=== PATIENT | female | born 1965 | race Two or more races ===

== ENCOUNTER 2018-12-05 21:25 | Emergency (ER) | payer OTHER ==
[~2018-12-05] VITALS: Ht 167.6 cm; Wt 127.0 kg
[2018-12-05] MEDS ORDERED: NEURONTIN300 MG (22:01)
[2018-12-05] MEDS ORDERED: TRENTAL (22:02)
[2018-12-05] MEDS ORDERED: PROTONIX40 M1 (22:03)
[2018-12-05] MEDS ORDERED: COZAAR50 MG (22:03)
[2018-12-05] MEDS ORDERED: TRAMADOL HCL E100 M1 (22:04)
[2018-12-05] MEDS ORDERED: SINGULAIR10 MG (22:04)
== END 2018-12-05 22:37 | disposition home or self-care (01) ==
LOC: ER 21:25
DX: S90.571A Other superficial bite of ankle, right ankle, initial encounter (principal); W54.0XXA Bitten by dog, initial encounter; Y93.89 Activity, other specified; Y92.89 Other specified places as the place of occurrence of the external cause; Y99.8 Other external cause status

== ENCOUNTER 2019-04-25 18:11 | Emergency (ER) | payer OTHER ==
[~2019-04-25] VITALS: Ht 167.6 cm; Wt 126.1 kg
[~2019-04-25 18:11] MED LIST: COZAAR50 MG; NEURONTIN300 MG; PROTONIX40 M1; SINGULAIR10 MG; TRAMADOL HCL E100 M1; TRENTAL
[2019-04-25] MEDS ORDERED: PEPCID AC20 MG (18:26)
== END 2019-04-25 20:56 | disposition home or self-care (01) ==
LOC: ER 18:11
DX: N20.1 Calculus of ureter (principal); N20.0 Calculus of kidney; N39.0 Urinary tract infection, site not specified

== ENCOUNTER 2020-12-13 21:03 | Emergency (ER) | payer OTHER ==
[~2020-12-13] VITALS: Ht 167.6 cm; Wt 145.6 kg
[~2020-12-13 21:03] MED LIST changes: +PEPCID AC20 MG
[2020-12-13] MEDS ORDERED: ULTRACET PO (22:54)
== END 2020-12-13 23:30 | disposition home or self-care (01) ==
LOC: ER 21:03
DX: S50.02XA Contusion of left elbow, initial encounter (principal); S50.12XA Contusion of left forearm, initial encounter; S80.02XA Contusion of left knee, initial encounter; M25.522 Pain in left elbow; M79.632 Pain in left forearm; M25.562 Pain in left knee; W01.0XXA Fall on same level from slipping, tripping and stumbling without subsequent striking against object, initial encounter; Y93.89 Activity, other specified; Y92.89 Other specified places as the place of occurrence of the external cause; Y99.8 Other external cause status